=== PATIENT | male | born 1980 | race African-American/Black ===

== ENCOUNTER 2023-08-22 21:30 | Emergency (ER) | payer OTHER ==
[~2023-08-22] VITALS: Ht 165.1 cm; Wt 88.0 kg
[2023-08-22 21:30] VITALS: BP 144/89; PULSE 94; RESP 18; TEMP 97.7; O2SAT 100
[2023-08-22 21:50] VITALS: BP 141/109; PULSE 98; RESP 18; O2SAT 98
[2023-08-22 22:05] VITALS: BP 167/79; PULSE 104; RESP 18; O2SAT 95
[2023-08-22 22:20] VITALS: BP 139/112; PULSE 107; RESP 18; O2SAT 97
[2023-08-22 22:50] VITALS: BP 135/91; PULSE 102; RESP 18; O2SAT 94
== END 2023-08-22 23:05 | disposition home or self-care (01) ==
LOC: ER 21:30
DX: S80.11XA Contusion of right lower leg, initial encounter (principal); S20.219A Contusion of unspecified front wall of thorax, initial encounter; Z88.5 Allergy status to narcotic agent; V89.2XXA Person injured in unspecified motor-vehicle accident, traffic, initial encounter; Y93.89 Activity, other specified; Y92.410 Unspecified street and highway as the place of occurrence of the external cause; Y99.8 Other external cause status
CPT/HCPCS: 71045; 72100; 99285; 73070-RT